=== PATIENT | male | born 1980 | race Caucasian/White ===

== ENCOUNTER 2022-12-02 08:52 | Emergency (ER) | payer OTHER, SELFPAY ==
--- NOTE | 2022-12-02 08:57 | HMH.EDGENADL ---
Discharge Plan Disposition Patient Disposition: Home, Self-Care Prescriptions Prescriptions: New sulfamethoxazole-trimethoprim [Bactrim DS] 800-160 mg tablet 1 tab PO BID 10 Days Qty: 20 0RF Referrals Follow up/Referrals: Provider,Referral, [Primary Care Provider] - See instructions Activity Restrictions/Add. Instructions Additional Instructions/Restrictions: Your ultrasound showed a complex fluid collection consistent with most likely a complex hydrocele but given the significant tenderness you have over at the epididymal area we will treat for possible epididymitis as well. It is important given the abnormal nature of this hydrocele that you follow-up with urology within 1 to 2 weeks please return to the emergency department with any worsening symptoms. You will need to call make an appointment with a urologist as we do not have 1 at [facility]. Clinical Impressions Clinical Impression: Epididymitis, Hydrocele in adult Instructions Patient Instructions: DI for Urinary Tract Infection (UTI), DI for Urinary Tract Infection in Children Discharge ED Provider: Jose Roberto Prince General Adult HPI General Chief complaint: Urogenital-Male Stated complaint: Possible hernia groin Time Seen by Provider: 12/02/22 08:57 History of Present Illness HPI narrative: 42-year-old male presenting with left testicle pain. States that he has had pain and swelling over the last 4 days. Denies any urinary symptoms. Denies any discharge. Denies any sex outside of a monogamous relationship. No history of STIs he states. No groin swelling at all in his testicle. No fevers or chills he is able to urinate without difficulty and is having normal flatus and bowel movements. Related Data Previous Rx's Medication Instructions Recorded sulfamethoxazole 800 1 tab PO BID 10 days #20 tabs 12/02/22 mg-trimethoprim 160 mg tablet (Bactrim DS) Allergies Allergy/AdvReac Type Severity Reaction Status Date / Time alprazolam [From XANAX] Allergy Unknown Verified 12/02/22 09:15 Penicillins [PENICILLINS] Allergy Unknown Verified 12/02/22 09:15 [facility] Disclaimer: The information contained in this section may have been updated after the patient was seen, as this information can be updated by other users. Social History Smoking Status: Current every day smoker alcohol intake: never current occupational status: other Travel in the last 8 weeks: None ROS Obtained: Yes All systems reviewed & no additional complaints except as documented Physical Exam General General appearance: alert and in no apparent distress Respiratory Respiratory exam: Absent respiratory distress Cardiovascular Cardiovascular exam: Present regular rate; Absent tachycardia exam: Present other (Left side the scrotum is diffusely swollen and tender not erythematous there is no bulge in the inguinal canal or left groin) Neurological Exam Neurological exam: Present alert and oriented X3 Medical Decision Making [place] Inquiry Pt receiving controlled substance: No Vital Signs: 12/02/22 09:01 12/02/22 10:31 12/02/22 11:00 Temperature 98.2 F Temperature Source Oral Pulse Rate 57 L 60 Pulse Rate [Left Radial] 82 Respiratory Rate 18 Blood Pressure 129/78 117/79 Blood Pressure [Right Arm] 140/85 Blood Pressure Mean 90 91 Blood Pressure Mean [Right Arm] 103 02 Sat by Pulse Oximetry 99 98 95 Oxygen Delivery Method Room Air Room Air Room Air 12/02/22 11:30 Temperature Temperature Source Pulse Rate 54 L Pulse Rate [Left Radial] Respiratory Rate Blood Pressure 129/72 Blood Pressure [Right Arm] Blood Pressure Mean 82 Blood Pressure Mean [Right Arm] 02 Sat by Pulse Oximetry 98 Oxygen Delivery Method Room Air Lab Data Lab Results 12/02/22 09:05: Urine Color Yellow, Urine Appearance Clear, Urine pH 6.0, Ur Specific [place] 1.025, Urine Protein Negative, Urine Glucose (UA) Negative, Urine Ketones
[2022-12-02 09:01] VITALS: BP 140/85; PULSE 82; RESP 18; TEMP 36.8; O2SAT 99; BMI 22.3
--- NOTE | 2022-12-02 09:01 | US_ITS ---
FINAL REPORT TECHNIQUE: Ultrasound images of the testicles were obtained bilaterally. Color Doppler images were obtained. CLINICAL HISTORY: left testicle pain FINDINGS: The right testicle measures up to 4.0 cm. The left testicle measures up to 4.2 cm. Arterial flow is identified bilaterally. No intratesticular masses are identified. There is a large complex fluid collection superior to the left testicle measuring up to 5.2 cm, favor complex hydrocele over other cystic mass. There is at an echogenic focus in the left hemiscrotum, may represent soft tissue calcification IMPRESSION: Large complex fluid collection superior to the left testicle, favor complex hydrocele over other cystic mass. Reviewed, Interpreted and Dictated by Geovany Arcos III, MD Transcribed by Eileen Perez Authenticated and [facility]
[2022-12-02 09:11] LABS: Microscopic, Urine URINE MICROSCOPIC (MICROSCOPIC)
[2022-12-02 09:15] LABS: Appearance,Urine CLEAR (Clear); Blood, Urine Negative (Negative); Color,Urine YELLOW (Yellow); Glucose,Urine (UA) Negative (Negative); Ketones,Urine Negative (Negative); Leukocyte Esterase,Urine Negative (Negative); Nitrate,Urine Negative (Negative); Protein,Urine Negative (Negative); Specific Gravity, Urine 1.025 (1.005-1.030); Urobilinogen,Urine 0.2 EU/dl (0.2)
--- NOTE | 2022-12-02 09:15 | PC.NURSE ---
Spoke with Tania in lab regarding Chlamydia/GC order add on; urine in lab.
--- NOTE | 2022-12-02 09:17 | PC.NURSE ---
contacted radiology regarding US order. spoke to Khurram Dorman
[2022-12-02 09:24] LABS: Bilirubin,Urine Negative (Negative)
[2022-12-02 09:42] LABS: Squamous Epithelial Cell,Urine Occasional #/hpf (0-5); WBC,Urine Occasional #/hpf (0-3)
--- NOTE | 2022-12-02 09:48 | PC.NURSE ---
To US via wheelchair
[2022-12-02 10:31] VITALS: BP 129/78; PULSE 57; O2SAT 98
[2022-12-02 11:00] VITALS: BP 117/79; PULSE 60; O2SAT 95
[2022-12-02 11:30] VITALS: BP 129/72; PULSE 54; O2SAT 98
[2022-12-02 11:55] VITALS: BP 125/80; PULSE 74; RESP 20; TEMP 36.8; O2SAT 99
[2022-12-03 23:11] LABS: Neisseria gonorrhoeae, NAA Negative (Negative)
== END 2022-12-02 11:57 | disposition home or self-care (01) ==
PROVIDERS: Emergency Provider Student in an Organized Health Care Education/Training Program
DX: N45.1 Epididymitis (principal); N43.3 Hydrocele, unspecified; F17.200 Nicotine dependence, unspecified, uncomplicated
CPT/HCPCS: 76870; 81001; 87086; 87491; 87591; 99284